=== PATIENT | male | born 1965 | race Caucasian/White ===

== ENCOUNTER 2017-03-03 06:46 | Emergency (ER) | payer OTHER ==
[2017-03-03] MEDS ORDERED: TDAP ADULT 0.5 ML INJ (BOOSTRIX) IM ONE (07:34)
--- NOTE | 2017-03-03 07:49 | EDPHY ---
HPI/HX/ROS/PE/MDM Narrative: CHIEF COMPLAINT: Injury to Right Index Finger HISTORY OF PRESENT ILLNESS: The patient is a 51 y/o male who sustained a right index finger injury secondary to a fall while hiking this morning. He describes a mechanical trip and fall causing him to reach out with his right hand to guard his fall. His hand landed on a rock and he sustained right palmar abrasions and index finger injury. He denies striking his head, loss of consciousness, weakness, paraesthesias or other significant injury. He is currently experiencing limited flexion of his right index finger and swelling around the area. He denies pertinent medical history. No fever, chills, chest pain, shortness of breath, palpitations, vomiting, diarrhea, urinary complaints , headache, lightheadedness. REVIEW OF SYSTEMS: Aside from elements discussed in the HPI, a comprehensive 10-point review of systems was reviewed and is negative. PAST MEDICAL HISTORY: Denies SOCIAL HISTORY: Hiker, , employed. Lives in [place]. PCP: Dr. Anderson. VITAL SIGNS: Reviewed by me GENERAL: Well-developed, well-nourished, resting comfortably in no respiratory distress. HEENT: Atraumatic. BACK: No CVA tenderness. EXTREMITIES: Deformity of right index PIP with overlying tenderness and limited mobility, good 2 point sensation and brisk capillary refill. Ecchymosis over palmar aspect of right hand. Superficial abrasion over right thenar eminence. Superficial abrasion over left elbow. NEURO: Alert and oriented, grossly nonfocal. SKIN: Warm and dry, no rash. PSYCHIATRIC: Normal mentation, no agitation. Portions of this note were transcribed by a medical collections. I personally performed a history, physical exam, medical decision making, and confirmed accuracy of information the transcribed note. ED Course: 0746: Reassessed patient and discussed exam findings from hand X-ray. Hand X- ray shows dislocation at right index PIP joint with associated small avulsion fractures. He will require manual reduction of this dislocation. Plan for digital block, splint, wound care, and referral to hand surgeon. He understands and agrees with this plan. Procedure: Reduction of dislocated right index finger PIP joint. Time-out completed immediately before the procedure. Neurovascular exam intact pre-procedure. Completed digital block at the MCP joint with Sensorcaine without epi for local anesthesia. The finger was reduced using traction. Reassessed post-procedure. Neurovascular status intact-Normal Motor and sensory exam. Exam indicated reduction. Confirmed reduction on X-ray. Splint applied by tech. The procedure was performed by myself, Dr. Jameson. - Data Points Imaging Results: Imaging Impressions Hand X-Ray 03/03/17 07:04 Impression: 1. Dorsal lateral subluxation of the right second middle phalanx at the PIP joint with small chip or avulsion fractures along the anterior and posterior margins. Finger X-Ray 03/03/17 07:51 Impression: 1. Good alignment of right second digit postreduction. 2. Small chip/avulsion fractures along the anterior and posterior margins of the right second PIP joint. Medications Given: Discontinued Medications Diphtheria/Tetanus/Acell Pertussis (Boostrix) 0.5 ml IM .ONCE ONE Stop: 03/03/17 07:35 Last Admin: 03/03/17 07:45 Dose: 0.5 ml Ibuprofen (Motrin) 600 mg PO EDNOW ONE Stop: 03/03/17 08:06 Last Admin: 03/03/17 08:22 Dose: 600 mg General Time Seen by Provider: 03/03/17 07:19 Initial Vital Signs: Initial Vital Signs Temperature (C) 36.4 C 03/03/17 06:51 Heart Rate 79 03/03/17 06:51 Respiratory Rate 18 03/03/17 06:51 Blood Pressure 116/74 03/03/17 06:51 O2 Sat (%) 95 03/03/17 06:51 O2 Delivery Mode Room Air Allergies/Adverse Reactions: No Known Allergies Allergy (Unverified 04/19/15 20:50) Home Medications: Medication Instructions Recorded Lisinopril 04/19/15 Departure - Departure Disposition: Home, Routine, Self-Care Clinical Impression: Right index Dislocation of PIP joint of finger Qualifiers: Encounter type: initial encounter Qualified Code(s): S63.289A - Dislocation of proximal interphalangeal joint of unspecified finger, initial encounter Condition: Good Instructions: Finger Dislocation (ED) Additional Instructions: 1. Apply ice to sore areas, keep finger elevated when possible. 2. Use ibuprofen orally as directed below as needed for pain over the next few days. 3. Wear splint and do not use finger until seen by hand surgeon. 4. Follow up with Dr. Ring, hand surgeon within the next week. 5. Return to the emergency department for severe pain, discoloration or numbness of your finger tip, fever, dramatic increase in redness or warmth at wound sites, or other worsening of condition. I recommend Ibuprofen (Motrin, Advil) or Naproxen Sodium (Aleve) for pain and anti-inflammatory effects. You may take either one, but do not take both. Your dose is: Ibuprofen 600 mg every 6-8 hours with food. OR Naproxen Sodium (Aleve) 220 mg every 12 hours. Referrals: Ankit Anderson MD [Primary Care Provider] - As per Instructions Melvi Ring MD [Medical Doctor] - As per Instructions Report Scribed for: Nelly Jameson Report Scribed by: Netta Rees Date of Report: 03/03/17 Time of Report: 11:38
[2017-03-03] MEDS ORDERED: IBUPROFEN 600 MG TAB PO ONE (08:05)
[2017-03-03 08:45] VITALS: BP 103/77; PULSE 64; RESP 16; TEMP 98.4; O2SAT 96
== END 2017-03-03 08:43 | disposition home or self-care (01) ==
PROC: 0RSWXZZ Reposition Right Finger Phalangeal Joint, External Approach (ICD-10-PCS; principal; 2017-03-03)
DX: S63.280A Dislocation of proximal interphalangeal joint of right index finger, initial encounter (principal); W01.0XXA Fall on same level from slipping, tripping and stumbling without subsequent striking against object, initial encounter; Y99.8 Other external cause status; Y93.01 Activity, walking, marching and hiking; Z23 Encounter for immunization
CPT/HCPCS: L3925